=== PATIENT | male | born 1965 | race Hispanic/Latino ===

== ENCOUNTER 2016-11-06 21:14 | Emergency (ER) | payer OTHER ==
[2016-11-06] MEDS ORDERED: DIPHTH,PERTUSS(ACELL),TET VAC 0.5 ML VIAL IM ONE (21:31)
[2016-11-06] MEDS ORDERED: TETANUS AND DIPHTHERIA TOXOID 0.5 ML SYRG IM ONE (21:33)
--- NOTE | 2016-11-06 21:35 | ERNOTE ---
Medical Problem HPI - Narrative Date of Service: 11/06/16 - General Chief Complaint: Laceration Time Seen by Provider: 11/06/16 21:25 Source: patient Exam Limitations: no limitations - Immun/Allergies/Home Medications Immunizations: IMMUNIZATION HX History of Influenza Vaccine No Allergies/Adverse Reactions: Allergies No Known Drug Allergies Allergy (Verified 11/06/16 21:21) Home Medications: HOME MEDICATIONS Gabapentin [Neurontin] 300 mg PO BID 11/06/16 [Last Taken Unknown] Gabapentin [Neurontin] 600 mg PO BID 11/06/16 [Last Taken Unknown] Naproxen [Naprosyn] 500 mg PO BID PRN 11/06/16 [Last Taken Unknown] - History of Present History Narrative: Inmate that was cut by a sharp plastic object resulting in a laceration at the right quaker. No LOC or vomiting. Timing: constant Severity: mild Modifying Factors - (Worsens): Present: other - none Review of Systems - Review of Systems Constitutional: Present: no symptoms reported EYE: Present: no symptoms reported ENT: Present: no symptoms reported Respiratory: Present: no symptoms reported Cardiology: Present: no symptoms reported Gastrointestinal/Abdominal: Present: no symptoms reported Genitourinary: Present: no symptoms reported Musculoskeletal: Present: no symptoms reported Skin: Present: no symptoms reported Neurological: Present: no symptoms reported Endocrine: Present: no symptoms reported - Patient's Past Medical History Patient History - Medical: No pertinent hx Patient History - Cardiac/Respiratory: No pertinent hx Patient History - Cancer: No Hx of Cancer Patient History - Surgical Procedures: No surgical history Patient History - Other: None - Social History Psych History: No pertinent hx Smoking Status: Former smoker Alcohol Use: none Drug Use: none - Immunizations History of Influenza Vaccine: No Physical Exam - Physical Exam General Appearance: Present: no apparent distress Head Exam: Present: normal inspection, other - Laceration at the left quaker that was 2 cm in length with minimal bleeding. Eye Exam: Normal inspection: bilateral Ears, Nose, Throat: Present: normal ENT inspection Neck: Present: normal inspection Respiratory: Present: no respiratory distress Cardiovascular/Chest: Present: regular rate, rhythm Gastrointestinal/Abdominal: Present: nondistended Extremity Exam: Present: normal inspection Neurological Exam: Present: alert, oriented ED Progress - Vital Signs Patient's Vital Signs:: I have reviewed the patient's vital signs. Vital Signs: Vital Signs 11/06/16 21:18 Temperature 36.8 C Pulse Rate 90 Respiratory 18 Rate Blood Pressure 145/88 O2 Sat by Pulse 96 Oximetry - Progress/Reassessment Chief Complaint: Laceration Progress:: Improved Procedures Left Head Anesthesia: 1% Lidocaine I & D Prep: betadine prep Wound's Depth/Shape: into subcutaneous Wound Explored: clean Wound Intervention: irrigated w/saline Foreign body identified: other - none found Distal NVT: neuro/vasc intact Wound Repaired With: sutures Suture Size/Type: 4-0 Layer Closure: Simple Estimated blood loss (ml): 3 Complications: Pt abdiel procedure well Departure - Departure Clinical Impression: Simple laceration of face Disposition: Home self-care Condition: Good Instructions: Facial Laceration Print Language: Cypriot Additional Instructions: Sutures should be removed in 10 days.
[2016-11-06] MEDS ORDERED: ACETAMINOPHEN 500 MG TABLET PO ONE (21:46)
[2016-11-06 22:17] VITALS: BP 130/68
== END 2016-11-06 22:14 | disposition home or self-care (01) ==
LOC: ER 21:14
PROC: 0JQ10ZZ Repair Face Subcutaneous Tissue and Fascia, Open Approach (ICD-10-PCS; principal; 2016-11-06)
DX: S01.81XA Laceration without foreign body of other part of head, initial encounter (principal); W45.8XXA Other foreign body or object entering through skin, initial encounter; Y93.9 Activity, unspecified; Y92.149 Unspecified place in prison as the place of occurrence of the external cause; Z23 Encounter for immunization